=== PATIENT | male | born 1970 | race Hispanic/Latino ===

== ENCOUNTER 2017-04-22 11:17 | Emergency (ER) | payer OTHER ==
[2017-04-24 00:12] LABS: Lyme Disease IgG/IgM Antibodie <0.91 ISR (0.00-0.90); Lyme Disease IgM Ab Quantitati <0.80 index (0.00-0.79)
== END 2017-04-22 13:27 | disposition home or self-care (01) ==
LOC: M ED 11:17
DX: M25.561 Pain in right knee (principal); I10 Essential (primary) hypertension; E03.9 Hypothyroidism, unspecified
CPT/HCPCS: 73564

== ENCOUNTER → 2021-05-28 | Outpatient (CLI) | payer OTHER ==
[~2021-05-28] MED LIST: ASPI81TA26 PO; ATOR1TAB19 PO; ERGO500029 PO; FURO20TA2 PO; JARD1TAB PO; LISI10TA22 PO; METO1TAB32 PO; NAPR-885 PO; SYNT25TA PO
== END ==
LOC: M LABSMTC 10:20
PROVIDERS: ATTEND Anesthesiology
DX: Z01.818 Encounter for other preprocedural examination (principal); Z11.52 Encounter for screening for COVID-19

== ENCOUNTER → 2021-09-26 | Outpatient (CLI) | payer OTHER ==
[~2021-09-26] MED LIST changes: +ACET325T43 PO; +ATOR80TA59 PO; +CLOP75TA2 PO; +ENTR1TAB PO; +JARD1TAB3 PO; +SYNT125T PO
== END ==
LOC: M LABSMTC 09:14
PROVIDERS: ATTEND Internal Medicine Gastroenterology
DX: Z01.812 Encounter for preprocedural laboratory examination (principal); Z20.822 Contact with and (suspected) exposure to COVID-19

== ENCOUNTER → 2022-10-02 | Outpatient (CLI) | payer OTHER | LOC: M WHC 08:26 | PROVIDERS: ATTEND Nurse Practitioner Adult Health | DX: Z13.6 Encounter for screening for cardiovascular disorders (principal); R16.0 Hepatomegaly, not elsewhere classified; Q63.2 Ectopic kidney ==